=== PATIENT | female | born 2000 | race African-American/Black ===

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

== ENCOUNTER 2020-03-12 20:49 | Emergency (ER) | payer SELFPAY ==
[~2020-03-12] VITALS: Ht 154.9 cm; Wt 57.7 kg
[~2020-03-12 20:49] MED LIST changes: +MUPIROCIN21 TOP
[2020-03-12] MEDS ORDERED: KEFLEX500 M1 PO (22:05)
[2020-03-12 22:10] VITALS: BP 134/83
== END 2020-03-12 22:10 | disposition home or self-care (01) | DRG 605 ==
LOC: ED 20:49
DX: S00.452A Superficial foreign body of left ear, initial encounter (principal); X58.XXXA Exposure to other specified factors, initial encounter